=== PATIENT | female | born 1965 | race Caucasian/White ===

== ENCOUNTER 2017-12-06 11:32 | Observation (INO) | payer BC ==
[~2017-12-06] VITALS: Ht 170.2 cm; Wt 112.0 kg
[2017-12-06 12:07] LABS: BASOPHIL (%) 0.8 % (0-1); BASOPHIL COUNT 0.1 K/uL (0-0.1); EOSINOPHIL (%) 3.2 % (0-5); EOSINOPHIL COUNT 0.2 K/uL (0-0.3); HEMATOCRIT 38.7 % (36.0-46.0); HEMOGLOBIN 13.5 G/DL (11.9-15.5); IMMATURE GRANULOCYTE (%) 0.3 % (0.0-0.7); LYMPHOCYTE (%) 38.3 % (15-42); LYMPHOCYTE COUNT 2.5 K/uL (1.0-2.8); MCHC 34.9 G/DL (30.0-36.0); MONOCYTE (%) 7.9 % (3-12); MONOCYTE COUNT 0.5 K/uL (0-0.8); NEUTROPHIL (%) 49.5 % (45-76); NEUTROPHIL COUNT 3.2 K/uL (1.8-6.4); PLATELET COUNT 217 K/uL (156-360); RBC DIS.WIDTH-CV 12.6 % (11.8-14.6); RBC DIS.WIDTH-SD 39.6 % (39-53); WHITE BLOOD COUNT 6.6 K/uL (4.1-10.2)
[2017-12-06 12:14] LABS: CHLORIDE 104 mEq/L (99-109); POTASSIUM 3.8 mEq/L (3.7-5.4); SODIUM 139 mEq/L (136-147)
[2017-12-06 12:15] LABS: GLUCOSE 90 mg/dL (70-99); PTT 27.9 SEC (25-37)
[2017-12-06 12:19] LABS: CREATININE 0.6 mg/dL (0.6-1.3); GFR ESTIMATE (CALCULATED) > 59 mL/min/
[2017-12-06 12:20] LABS: UREA NITROGEN (BUN) 11 mg/dL (9-23)
[2017-12-06 12:25] LABS: TROP-I INTERPRETATION NEGATIVE; TROPONIN-I < 0.01 ng/mL (0.0-0.30)
[2017-12-06] MEDS ORDERED: MOBIC7.5 MG PO (13:01)
[2017-12-06] MEDS ORDERED: LO-DOSE ASPIRIN81 M1 PO (13:02)
[2017-12-06] MEDS ORDERED: CENTRUM MULTIG80 MCG PO (13:02)
[2017-12-06] MEDS ORDERED: B-121000 MC2 PO (13:02)
[2017-12-06 13:52] LABS: D-DIMER ELISA < 150.00 ng/mLDDU (<230)
[2017-12-06 13:58] LABS: CREATINE KINASE 79 IU/L (1-294); TOTAL CK 79 IU/L (1-294)
[2017-12-06 14:06] LABS: CKMB RELATIVE INDEX 1.3 (0.0-3.9)
[2017-12-06 14:40] LABS: HDL CHOLESTEROL 43 MG/DL (Desirable>=50); LDL CHOLESTEROL 112 mg/dL (Desirable<100); NON-HDL CHOLESTEROL 140 mg/dL (Desirable<160); TOTAL CHOLESTEROL 183 mg/dL (Desirable<200); TRIGLYCERIDES 141 MG/DL (Normal: <150)
[2017-12-06 15:28] LABS: THYROTROPIN (TSH) 1.1 MIU/L (0.4-5.5)
[2017-12-06 15:58] VITALS: BP 142/75
[2017-12-06 18:30] VITALS: BP 133/66
[2017-12-06 20:47] LABS: TROP-I INTERPRETATION NEGATIVE; TROPONIN-I < 0.01 ng/mL (0.0-0.30)
[2017-12-06 23:31] VITALS: BP 130/76
[2017-12-07 03:53] VITALS: BP 127/78
[2017-12-07 05:29] LABS: TROP-I INTERPRETATION NEGATIVE; TROPONIN-I < 0.01 ng/mL (0.0-0.30)
[2017-12-07 05:36] LABS: ALBUMIN 3.6 G/DL (3.2-4.8); ALKALINE PHOSPHATASE 39 IU/L (3-129); ALT (GPT) 15 IU/L (3-49); AST (GOT) 14 IU/L (2-34); CHLORIDE 105 MEQ/L (99-109); CREATININE 0.5 MG/DL (0.6-1.3); GFR ESTIMATE (CALCULATED) > 59 mL/min/; GLUCOSE 98 mg/dL (70-99); SODIUM 138 MEQ/L (136-147); TOTAL BILIRUBIN 0.4 MG/DL (0.0-1.0); TOTAL PROTEIN 6.7 G/DL (6.4-8.3); UREA NITROGEN (BUN) 11 mg/dL (9-23)
[2017-12-07 08:30] VITALS: BP 126/70
[2017-12-07 08:53] LABS: HEMOGLOBIN A1c (GLYCOHEMOGLOB) 5.2 % (Below 5.7)
[2017-12-07] MEDS ORDERED: TYLENOL REGULA325 MG PO (09:30)
[2017-12-07] MEDS ORDERED: FAMOTIDINE20 MG PO (09:31)
[2017-12-07] MEDS ORDERED: ASPIR 8181 M1 PO (09:31)
[2017-12-07] MEDS ORDERED: MAG-AL PLUS SUS30 ML PO (09:31)
== END 2017-12-07 10:28 | disposition home or self-care (01) ==
LOC: EME 11:32 → 4SOUTH 13:05 → EDOF 13:05 → ENRESERV 13:07 → EDOF 13:54 → 4SOUTH 15:56
PROVIDERS: Emergency Medicine; Internal Medicine
DX: R07.89 Other chest pain (principal); R94.31 Abnormal electrocardiogram [ECG] [EKG]; Z82.49 Family history of ischemic heart disease and other diseases of the circulatory system; M19.90 Unspecified osteoarthritis, unspecified site; Z79.1 Long term (current) use of non-steroidal anti-inflammatories (NSAID)
CPT/HCPCS: 71045; 80048; 80053; 80061; 82550 91; 82553; 83036; 83880; 84443; 84484; 85025; 85379; 85610; 85730; 93005; 99281; 99285; G0378